=== PATIENT | female | born 1945 | race Caucasian/White ===

== ENCOUNTER 2019-12-22 08:42 | Outpatient (CLI) | payer BC ==
--- NOTE | 2019-12-22 11:36 | MRI ---
EXAM: MRI right knee PROVIDED CLINICAL HISTORY: Pain COMPARISON: None FINDINGS: Evaluation is limited by patient motion. The anterior cruciate ligament, posterior cruciate ligament, medial collateral ligament and lateral c ollateral ligamentous complex demonstrate an intact MR appearance, as does the extensor mechanism. There is complex nondisplaced tearing involving the body and probably also posterior horn of the medi al meniscus. The lateral meniscus demonstrates no evidence for tear. There is full-thickness articular cartilage loss involving the central weightbearing portions of the medial femoral condyle. There is extensive cartilage absence involving the lateral patellar facet and lateral trochlea. There is a physiologic amount of fluid within the knee joint. There is an 11 mm intracapsular body at the posterior aspect of the lateral femoral condyle, simulating fabella. Additional 1 cm intra-articular body at the posterior aspect of the intercondylar region of the knee laterally. No focal concerning regional marrow or muscular signal abnormality apparent. IMPRESSION: 1. Limited study due to patient motion. 2. Medial meniscal tear as described. 3. 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
== END 2019-12-22 08:43 | disposition home or self-care (01) ==
LOC: SCSMRI 08:42
PROVIDERS: ATTEND Orthopaedic Surgery
DX: S83.241A Other tear of medial meniscus, current injury, right knee, initial encounter (principal); M23.91 Unspecified internal derangement of right knee